=== PATIENT | male | born 1985 ===

== ENCOUNTER 2017-04-17 12:23 | Emergency (ER) | payer BC ==
[2017-04-17 13:18] VITALS: BP 144/89
--- NOTE | 2017-04-17 13:57 | UC ---
HPI Wound/Suture Re-check - HPI Summary HPI Summary: While using belt-ivy 2 days ago pt accidentally injured skin on L palm at base of thumb. He washed the area with soapy water and dressed it with abx ointment. Yesterday had lots of pain, then this morning noticed a lot of drainage and a small red streak up - History Of Current Complaint Chief Complaint: UCLaceration Stated Complaint: HAND INJURY Time Seen by Provider: 04/17/17 13:38 Hx Obtained From: Patient Onset/Duration: Gradual Onset, Lasting Days Severity: Mild Pain Intensity: 3 Hands: 1 - skin avulsion 2 - lymphangitic streak - Allergies/Home Medications Allergies/Adverse Reactions: Allergies Allergy/AdvReac Type Severity Reaction Status Date / Time No Known Allergies Allergy Verified 04/17/17 13:18 PMH/Surg Hx/FS Hx/Imm Hx Previously Healthy: Yes - Surgical History Surgical History: None - Family History Known Family History: Positive: Hypertension - Social History Lives: With Family Alcohol Use: None Substance Use Type: None Smoking Status (MU): Never Smoked Tobacco - Immunization History Most Recent Tetanus Shot: unsure Review of Systems Constitutional: Negative Skin: Other - abrasion/avulsion L hand Eyes: Negative ENT: Negative Respiratory: Negative Cardiovascular: Negative Gastrointestinal: Negative Genitourinary: Negative Motor: Negative Neurovascular: Negative Musculoskeletal: Negative Neurological: Negative Psychological: Negative Is Patient Immunocompromised?: No All Other Systems Reviewed And Are Negative: Yes Physical Exam Triage Information Reviewed: Yes Appearance: Well-Appearing, No Pain Distress, Well-Nourished Vital Signs: Initial Vital Signs Temp 97.2 F 04/17/17 13:15 Pulse 63 04/17/17 13:15 Resp 18 04/17/17 13:15 BP 144/89 04/17/17 13:15 Pulse Ox 97 04/17/17 13:15 Vital Signs Reviewed: Yes Eye Exam: Normal Eyes: Positive: Conjunctiva Clear ENT Exam: Normal ENT: Positive: Normal ENT inspection, Hearing grossly normal, Pharynx normal, TMs normal Dental Exam: Normal Neck exam: Normal Neck: Positive: Supple, Nontender, No Lymphadenopathy Respiratory Exam: Normal Respiratory: Positive: Chest non-tender, Lungs clear, Normal breath sounds, No respiratory distress, No accessory muscle use Cardiovascular Exam: Normal Cardiovascular: Positive: RRR, No Murmur Musculoskeletal Exam: Normal Neurological Exam: Normal Neurological: Positive: Alert Psychological Exam: Normal Skin Exam: Other - Irreg open area L hand approx 3cm x 4cm; faint 10-cm lymphangitic streaking from L wrist. Course/Dx - Differential Dx - Laceration/Wound Provider Diagnoses: Skin avulsion L hand with secondary infection. L forearm lymphangitis Discharge - Discharge Plan Condition: Stable Disposition: HOME Prescriptions: Cephalexin CAP* [Keflex 500 CAP*] 500 mg PO QID #20 cap Patient Education Materials: Lymphangitis (ED), Skin Avulsion (ED) Referrals: No Primary Care Phys,NOPCP [Primary Care Provider] - Additional Instructions: Continue to wash the area gently in warm, soapy water twice daily followed by a bandage change. You can use either antibiotic ointment or vaseline to lubricate the wound and prevent the bandage from sticking. The red streak on your arm should gradually fade in the next 48 hours. Come back right away if you have worsening redness, streaking, swelling, drainage, or new fevers.
== END 2017-04-17 14:07 | disposition home or self-care (01) ==
LOC: UCEAST 12:23
DX: S61.402A Unspecified open wound of left hand, initial encounter (principal); L08.9 Local infection of the skin and subcutaneous tissue, unspecified; W29.8XXA Contact with other powered hand tools and household machinery, initial encounter; Y93.9 Activity, unspecified; Y92.9 Unspecified place or not applicable; I89.1 Lymphangitis
CPT/HCPCS: 99202; G0463